=== PATIENT | female | born 1975 | race Caucasian/White ===

== ENCOUNTER → 2017-10-02 | Outpatient (CLI) | payer BC ==
[~2017-10-02] MED LIST: EMERGEN-C PO; MULT-506 PO; SERT25TA PO; SERT50TA PO
== END | disposition home or self-care (01) ==
LOC: C.PAPS 10:35
PROVIDERS: ATTEND Obstetrics & Gynecology
DX: Z01.419 Encounter for gynecological examination (general) (routine) without abnormal findings (principal)